=== PATIENT | female | born 1960 | race Caucasian/White ===

== ENCOUNTER 2016-11-04 10:40 | Emergency (ER) | payer BC ==
[2016-11-04 11:33] VITALS: BP 135/80
--- NOTE | 2016-11-04 12:24 | UC ---
Knee Pain HPI - HPI Summary HPI Summary: The patient comes in today for: 1. Right knee pain: Onset: 3 days ago. Palliative/provocative: Heating pad makes it better. There is "tightening" and "spasms" at 4 AM today. No pain if walking as long as there is no bending. Quality: Spasms, ache Region: Right lateral knee. Severity: 0/10 at rest. With the spasms 8/10 Time: Comes and goes. Associated symptoms: Injury: None known. Previous disease: None. Home treatment: ibuprofen and Vicodin--both helped. * - History of Current Complaint Chief Complaint: UCLowerExtremity Stated Complaint: KNEE PAIN Time Seen by Provider: 11/04/16 12:17 Hx Obtained From: Patient Hx Last Menstrual Period: NA - Allergies/Home Medications Allergies/Adverse Reactions: Allergies Allergy/AdvReac Type Severity Reaction Status Date / Time No Known Allergies Allergy Verified 07/01/15 17:23 Home Medications: Home Medications Liraglutide [Victoza] 0.06 mg SUBCUT DAILY 11/04/16 [History Confirmed 11/04/16] PMH/Surg Hx/FS Hx/Imm Hx Previously Healthy: No Endocrine History Of: Reports: Diabetes - BORDERLINE Denies: Thyroid Disease, Hyperthyroidism, Hypothyroidism, Dyslipidemia Cardiovascular History Of: Denies: Cardiac Disorders, Hypertension, Pacemaker/ICD, Myocardial Infarction , Congestive Heart Failure, Atrial Fibrillation, Deep Vein Thrombosis, Bleeding Disorders Respiratory History Of: Denies: COPD, Asthma, Bronchitis, Pneumonia, Pulmonary Embolism GI/ History Of: Denies: Gastroesophageal Reflux, Ulcer, Gastrointestinal Bleed, Gall Bladder Disease, Kidney Stones, Diverticulitis, Renal Disease, Urosepsis Neurological History Of: Denies: TIA, CVA, Dementia, Seizures, Migraine Psychological History Of: Reports: Anxiety - Panic attacks. Denies: Depression, Bipolar Disorder, Schizophrenia, Post Traumatic Stress Disorder Cancer History Of: Denies: Lung Cancer, Colorectal Cancer, Breast Cancer, Prostate Cancer, Cervical Cancer Other History Of: Negative For: HIV, Hepatitis B, Hepatitis C, Anticoagulant Therapy - Surgical History Surgical History: Yes Surgery Procedure, Year, and Place: cryosurgery - Family History Known Family History: Positive: Cardiac Disease, Diabetes Negative: Hypertension - Social History Occupation: Employed Full-time Alcohol Use: Rare Substance Use Type: None Smoking Status (MU): Never Smoked Tobacco Review of Systems Constitutional: Negative Skin: Negative Eyes: Negative ENT: Negative Respiratory: Negative Cardiovascular: Negative Gastrointestinal: Negative Genitourinary: Negative Musculoskeletal: Arthralgia All Other Systems Reviewed And Are Negative: Yes Physical Exam Triage Information Reviewed: Yes Appearance: Well-Appearing, No Pain Distress, Well-Nourished Vital Signs: Initial Vital Signs Temp 98.7 F 11/04/16 11:29 Pulse 75 11/04/16 11:29 Resp 14 11/04/16 11:29 BP 135/80 11/04/16 11:29 Pulse Ox 97 11/04/16 11:29 Vital Signs Reviewed: Yes Eyes: Positive: Conjunctiva Clear. Negative: Discharge ENT: Positive: Hearing grossly normal. Negative: Pharyngeal erythema, Nasal congestion, Nasal drainage, TM bulging, TM dull, TM red, Tonsillar swelling, Tonsillar exudate Dental: Negative: Gross Decay/Caries @, Dental Fracture @ Neck: Positive: Supple, Nontender, No Lymphadenopathy. Negative: Nuchal Rigidity Respiratory: Positive: Lungs clear, No respiratory distress, No accessory muscle use. Negative: Crackles, Wheezing Cardiovascular: Positive: RRR, No Murmur Abdomen Description: Positive: Nontender, No Organomegaly, Soft. Negative: Distended, Guarding Musculoskeletal: Positive: Strength Intact, ROM Intact, No Edema, Other: - Right knee: There is no calf tenderness. However, there is tenderness to palpation of the proximal tibial/fibular head area. There is no ecchymosis. Neurological: Positive: Alert, Muscle Tone Normal Psychological: Positive: Age Appropriate Behavior, Consolable Skin: Negative: rashes, breakdown Diagnostics - Laboratory Diagnostic Studies Completed/Ordered: IMPRESSION: 1. Mild osteoarthritis. 2. Stigmata of potential previous lateral collateral ligament injury. - Radiology No standard instances Xray Interpretation: No Acute Changes Radiology Interpretation Completed By: Radiologist Knee Pain Course/Dx - Differential Dx/Diagnosis Provider Diagnoses: Right lateral knee pain (collateral ligament strain vs proximal tibiofibular joint instability) Discharge - Discharge Plan Condition: Stable Disposition: HOME Patient Education Materials: Knee Pain (ED) Referrals: Maria R Oconnor MD [Primary Care Provider] - 1 Week (Please see your primary care provider in a week to see how well you are doing. If you get worse, please be seen sooner in the ER or through us.)
--- NOTE | 2016-11-04 13:21 | RAD ---
Indication: Lateral RIGHT knee pain for 4 days. Spasms. Comparison: None. Technique: AP and lateral views RIGHT knee. Report: Mild osteophytosis. Negative for effusion, fracture, or significant joint space narrowing. Small calcification approximating the peripheral margin of the lateral femoral condyle may reflect sequela of previous lateral collateral ligament injury. Unremarkable soft tissue contours. IMPRESSION: 1. Mild osteoarthritis. 2. Stigmata of potential previous lateral collateral ligament injury.
== END 2016-11-04 13:47 | disposition home or self-care (01) ==
LOC: UCEAST 10:40
DX: M25.561 Pain in right knee (principal); M17.11 Unilateral primary osteoarthritis, right knee
CPT/HCPCS: 99212; G0463